=== PATIENT | male | born 1985 | race Hispanic/Latino ===

== ENCOUNTER 2018-03-17 19:49 | Emergency (ER) | payer MEDICAID ==
[2018-03-17 19:50] VITALS: BMI 30.7
[2018-03-17 20:11] VITALS: BP 152/90; TEMP 99.2
[2018-03-17 20:42] VITALS: PULSE 90; RESP 18; O2SAT 100
--- NOTE | 2018-03-17 21:11 | ED PDOC ---
Arrival/HPI - General Chief Complaint: Substance Abuse Time Seen by Provider: 03/17/18 20:06 Historian: Patient - History of Present Illness Narrative History of Present Illness (Text): 03/17/18 20:15 Sunil Crook is a 33 year old male, whose past medical history includes heroine abuse, who presents to the Emergency department brought in by EMS by substance abuse tonight. EMS states mother found patient tonight after he used heroin. Patient states he used heroin tonight and fell asleep afterwards. Patient woke up without difficulty and is alert/oriented x3 on arrival to the Emergency department. Patient states feels fine and denies any fever, chills, chest pain, shortness of breath, nausea, vomiting, diarrhea, urinary symptoms, back pain, neck pain, headache, dizziness, or any other complaints. Symptom Onset: Gradual Symptom Course: Unchanged Activities at Onset: Sleeping Context: Home Past Medical History - Provider Review Nursing Documentation Reviewed: Yes - Past History Past History: No Previous - Infectious Disease Hx of Infectious Diseases: None - Tetanus Immunization Tetanus Immunization: Unknown - Reproductive Currently Lactating: No - Cardiac Hx Cardiac Disorders: Yes Hx Cardiac Arrhythmia: Yes (WPW) Hx Hypertension: Yes - Pulmonary Hx Respiratory Disorders: Yes Hx Pneumonia: Yes (RL 2007) - HEENT Other/Comment: DNS DEFECT - Musculoskeletal/Rheumatological Hx Back Pain: Yes (LUMBAR) Hx Falls: No Hx Fractures: Yes (NASAL) Hx Herniated Disk: Yes (L1) - Gastrointestinal Hx Gastrointestinal Disorders: Yes Hx Clostridium Difficile: Yes (TREATED) - Genitourinary/Gynecological Hx Genitourinary Disorders: Yes (VARICOCELE) - Psychiatric Hx Psychophysiologic Disorder: Yes Hx Depression: Yes Hx Substance Use: Yes (heroin NOT FOR 2 YEARS) - Surgical History 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) Hx Musculoskeletal Surgery: Yes (L1 DISCECTOMY) Hx Orthopedic Surgery: Yes (L SHOULDER SLAP TEAR REPAIR) - Anesthesia Hx Anesthesia: Yes Hx Anesthesia Reactions: No Hx Malignant Hyperthermia: No - Suicidal Assessment Feels Threatened In Home Enviroment: No Family/Social History - Physician Review Nursing Documentation Reviewed: Yes Family/Social History: Unknown Family HX Smoking Status: Current Some Days Smoker Hx Alcohol Use: No Hx Substance Use: Yes (heroin NOT FOR 2 YEARS) Hx Substance Use Treatment: No Allergies/Home Meds Allergies/Adverse Reactions: Allergies No Known Allergies Allergy (Verified 12/09/16 10:55) Home Medications: Home Meds Medication Instructions Recorded Confirmed Ergocalciferol (Vitamin D2) 1 cap PO QWK 11/18/16 12/09/16 [Vitamin D2] FLUoxetine [Prozac] 1 cap PO DAILY 11/18/16 12/09/16 amLODIPine [Norvasc] 1 tab PO DAILY 11/18/16 12/09/16 Review of Systems - Physician Review All systems were reviewed & negative as marked: Yes - Review of Systems Constitutional: Normal. absent: Fevers Eyes: Normal ENT: Normal Respiratory: Normal. absent: SOB, Cough Cardiovascular: Normal. absent: Chest Pain Gastrointestinal: Normal. absent: Abdominal Pain, Diarrhea, Nausea, Vomiting Genitourinary Male: Normal. absent: Dysuria, Frequency, Hematuria, Urinary Output Changes Musculoskeletal: Normal. absent: Back Pain, Neck Pain Skin: Normal. absent: Rash Neurological: Normal. absent: Headache, Dizziness Endocrine: Normal Hemo/Lymphatic: Normal Psychiatric: Other (+substance abuse) Physical Exam Vital Signs Reviewed: Yes Vital Signs Temp Pulse Resp BP Pulse Ox 03/17/18 20:41 90 18 100 03/17/18 20:24 20 152/90 H 95 03/17/18 20:07 99.2 F 127 H 20 152/90 H 95 Temperature: Afebrile Blood Pressure: Normal Pulse: Regular Respiratory Rate: Normal Appearance: Positive for: Well-Appearing, Non-Toxic, Comfortable Pain Distress: None Mental Status: Positive for: Alert and Oriented X 3 - Systems Exam Head: Present: Atraumatic, Normocephalic Pupils: Present: PERRL Extroacular Muscles: Present: EOMI Conjunctiva: Present: Normal Mouth: Present: Moist Mucous Membranes Neck: Present: Normal Range of Motion Respiratory/Chest: Present: Clear to Auscultation, Good Air Exchange. No: Respiratory Distress, Accessory Muscle Use Cardiovascular: Present: Regular Rate and Rhythm, Normal S1, S2. No: Murmurs Abdomen: No: Tenderness, Distention, Peritoneal Signs Back: Present: Normal Inspection Upper Extremity: Present: Normal Inspection. No: Cyanosis, Edema Lower Extremity: Present: Normal Inspection. No: Edema Neurological: Present: GCS=15, CN II-XII Intact, Speech Normal Skin: Present: Warm, Dry, Normal Color. No: Rashes Psychiatric: Present: Alert, Oriented x 3, Normal Insight, Normal Concentration Medical Decision Making ED Course and Treatment: 03/17/18 20:15 Impression: 33 year old male brought in for substance abuse. Differential Diagnosis included but are not limited to: substance abuse Plan: -- Reassess and disposition Progress Notes: Pt alert and oriented x3 on arrival to the Emergency department, well-appearing , in no acute distress. Patient in agreement with plan to be discharged home. Patient is stable for discharge. Patient was instructed to follow up with physician/clinic in 1-2 days or return if symptoms worsen or new concerning symptoms arise. - Scribe Statement The provider has reviewed the documentation as recorded by the Kiki Silva Provider Scribe Attestation: All medical record entries made by the Scribe were at my direction and personally dictated by me. I have reviewed the chart and agree that the record accurately reflects my personal performance of the history, physical exam, medical decision making, and the department course for this patient. I have also personally directed, reviewed, and agree with the discharge instructions and disposition. Disposition/Present on Arrival - Present on Arrival Any Indicators Present on Arrival: No History of DVT/PE: No History of Uncontrolled Diabetes: No Urinary Catheter: No History of Decub. Ulcer: No History Surgical Site Infection Following: None - Disposition Have Diagnosis and Disposition been Completed?: Yes Diagnosis: Opiate abuse, episodic Disposition: HOME/ ROUTINE Disposition Time: 20:45 Condition: GOOD Discharge Instructions (ExitCare): Drug Abuse and Drug Addiction (DC) Referrals: Ck Clarke MD [Primary Care Provider] - Follow up with primary Forms: [employer] (Bengali)
== END 2018-03-17 20:41 | disposition home or self-care (01) ==
LOC: ED 19:49
DX: F11.10 Opioid abuse, uncomplicated (principal)